=== PATIENT | female | born 1990 | race Caucasian/White ===

== ENCOUNTER 2018-07-07 19:43 | Emergency (ER) | payer SELFPAY, OTHER ==
[2018-07-07] MEDS: IBUPROFEN 600 MG TAB PO (21:28)
[2018-07-07] MEDS: CYCLOBENZAPRINE 10 MG TAB PO (21:28)
== END 2018-07-07 23:03 | disposition home or self-care (01) ==
LOC: FTE 19:43
DX: M54.2 Cervicalgia (principal); M54.5 Low back pain; M54.6 Pain in thoracic spine; R10.11 Right upper quadrant pain; M25.561 Pain in right knee; R40.2412 Glasgow coma scale score 13-15, at arrival to emergency department
CPT/HCPCS: 72072; 72100; 73562; 76705; 81025; 99284-25